=== PATIENT | female | born 1980 | race African-American/Black ===

== ENCOUNTER 2021-08-21 19:11 | Emergency (ER) | payer OTHER, SELFPAY ==
--- NOTE | ~2021-08-21 | XR_ITS ---
EXAMINATION: XR LUMBOSACRAL SPINE CLINICAL INFORMATION: Fall and pain. COMPARISON: None TECHNIQUE: Three views of the lumbosacral spine. FINDINGS: The vertebral bodies and posterior elements are normal. The disc spaces are preserved and the vertebral alignment is normal. The paraspinal soft tissues are normal. XR/XR lumbar spine 2-3V IMPRESSION: Unremarkable examination.
--- NOTE | ~2021-08-21 | XR_ITS ---
EXAMINATION: XR CERVICAL SPINE CLINICAL INFORMATION: Fall and midline pain. COMPARISON: None TECHNIQUE: 3 views of the cervical spine were obtained. FINDINGS: There are no prevertebral soft tissue or bony abnormalities demonstrated. No compression fractures or subluxations are identified. Alignment is maintained at the atlanto-axial articulation. The disc spaces are preserved. No endplate changes are seen. The prevertebral soft tissues are normal. XR/XR cervical spine 3V IMPRESSION: Unremarkable examination.
--- NOTE | ~2021-08-21 | XR_ITS ---
EXAMINATION: XR SHOULDER, LEFT CLINICAL INFORMATION: Fall and pain. COMPARISON: None TECHNIQUE: Four views of the left shoulder. FINDINGS: The bones and soft tissues are normal. No fracture. Glenohumeral and acromioclavicular alignment is anatomic with normal joint space. No abnormal soft tissue calcifications. XR/XR shoulder LT min 2V IMPRESSION: Normal left shoulder.
[2021-08-21 21:39] VITALS: BP 103/51; PULSE 67; RESP 16; TEMP 36.6; O2SAT 99; BMI 30.2
--- NOTE | 2021-08-21 23:05 | ED.FALL ---
HPI - Fall General Chief Complaint: Fall Stated Complaint: fell on back 08/20.. back pain Time Seen by Provider: 08/21/21 23:05 Source: patient Mode of arrival: ambulatory Limitations: no limitations History of Present Illness HPI Narrative: patient slid on wet floor and landed on her back. Did not hit head, patient with left shoulder and lumbar pain. complaint: fall Onset (ago): hour(s) Fall from: standing Fall witnessed: yes, by bystander Place fall occurred: work Loss of consciousness: none Symptoms prior to fall: none Context: tripped/slipped Severity: mild Related Data Previous Rx's Medication Instructions Recorded cyclobenzaprine 10 mg tablet 10 mg PO TID #10 tab 08/22/21 naproxen 500 mg tablet (Naprosyn) 500 mg PO BID #20 tab 08/22/21 Allergies Allergy/AdvReac Type Severity Reaction Status Date / Time No Known Allergies Allergy Verified 08/21/21 21:47 Review of Systems Constitutional: Constitutional: Reports no additional constitutional complaints Eyes: Eyes: Reports no additional eye complaints ENT: Denies dizziness Cardiovascular: Cardiovascular: Reports no additional cardiovascular complaints Respiratory: Respiratory: Reports as per HPI Gastrointestinal: Gastrointestinal: Reports no additional gastrointestinal complaints Genitourinary: Genitourinary: Reports no additional female genitourinary complaints Musculoskeletal: Musculoskeletal: Reports no additional musculoskeletal complaints Integumentary/Breasts: Skin/Breast: Denies rash Neurologic: Reports system reviewed and no additional complaints, except as documented, Denies dizziness and Denies Sensory deficit (Neuro) Psychiatric: Psychiatric: Denies anxiety [facility] Past Medical History Medical History Hypothyroid Social History Social History Advance Directives: No Advance Directives Information Provided: Yes Patient : No Physical Exam Vital Signs: Vital Signs: Last Vital Signs Temp 98 F 08/21/21 21:39 Pulse 67 08/21/21 21:39 Resp 16 08/21/21 21:39 BP 103/51 L 08/21/21 21:39 Pulse Ox 99 08/21/21 21:39 BMI result Body Mass Index 30.2 Const: General: healthy appearing Nutritional Appearance: average body habitus Orientation/consciousness: oriented to person and patient oriented x3 Limitations: no limitations HENMT: Head: Yes normal to inspection Ears: external ears normal General nose exam: Normal external nose present Mouth: Normal oral and palatal mucosa present and oropharynx normal Throat: Yes posterior oropharynx normal Eyes: General: appearance normal, both eyes and all related structures Neck: Other: Midline tenderness to C7 Chest: Chest palpation & inspection: normal inspection of the chest Resp: Auscultation: clear to auscultation bilaterally Cardio: Jugular venous distension: no JVD Rate: regular rate Rhythm: regular rhythm Heart sounds: S1 normal heart sound present and S2 normal heart sound present GI: Inspection: Yes normal to inspection Palpation (GI): Soft to palpation, nontender and No hepatosplenomegaly present Auscultation: normal bowel sounds Back/Spine/Pelvis: Other: Lumbar spine tenderness to palpation Skin: General skin exam: no rashes or lesions noted Neuro: General: oriented to person and patient oriented x3 Cranial nerves: Yes CN's II-XII intact bilaterally Motor exam (neuro): 5/5 motor strength present throughout Sensory Exam: No Sensory deficit (Neuro) Extrem: Other: left shoulder tenderness to palpation and on range of motion Psych: Appearance: grossly normal Course Reevaluation(s) Reevaluation #1: Patient with out fractures of shoulder, lumbar and cervical spine. Will start NSAIDs and flexeril and dc home Time: 00:57 MDM - Fall Imaging Data cervical spine: Radiologist's impression: FINDINGS: There are no prevertebral soft tissue or bony abnormalities demonstrated. No compression fractures or subluxations are identified. Alignment is maintained at the atlanto-axial articulation. The disc spaces are preserved. No endplate changes are seen. The prevertebral soft tissues are normal. XR/XR cervical spine 3V IMPRESSION: Unremarkable examination. ? left shoulder: Radiologist's impression: FINDINGS: The bones and soft tissues are normal. No fracture. Glenohumeral and acromioclavicular alignment is anatomic with normal joint space. No abnormal soft tissue calcifications.? XR/XR shoulder LT min 2V IMPRESSION: Normal left shoulder. lumbar spine: Radiologist's impression: FINDINGS: The vertebral bodies and posterior elements are normal. The disc spaces are preserved and the vertebral alignment is normal. The paraspinal soft tissues are normal. XR/XR lumbar spine 2-3V IMPRESSION: Unremarkable examination. Discharge Plan Discharge Clinical Impression: Cervical strain Qualifiers: Encounter type: initial encounter Qualified Code(s): S16.1XXA - Strain of muscle, fascia and tendon at neck level, initial encounter Lumbar strain Qualifiers: Encounter type: initial encounter Qualified Code(s): S39.012A - Strain of muscle, fascia and tendon of lower back, initial encounter Contusion of left shoulder Qualifiers: Encounter type: initial encounter Qualified Code(s): S40.012A - Contusion of left shoulder, initial encounter Patient Disposition: Home, Self-Care Instructions: Cervical Strain (ED), Low Back Strain (ED), Shoulder Sprain (ED) Prescriptions: New cyclobenzaprine 10 mg tablet 10 mg PO TID Qty: 10 RF: 0 naproxen [Naprosyn] 500 mg tablet 500 mg PO BID Qty: 20 RF: 0 Referrals: Physician,None [Primary Care Provider] - 1 week
== END 2021-08-22 01:16 | disposition home or self-care (01) ==
PROVIDERS: Emergency Provider Emergency Medicine
DX: S16.1XXA Strain of muscle, fascia and tendon at neck level, initial encounter (principal); S40.012A Contusion of left shoulder, initial encounter; M54.50 Low back pain, unspecified; W01.0XXA Fall on same level from slipping, tripping and stumbling without subsequent striking against object, initial encounter; Y93.9 Activity, unspecified; Y92.9 Unspecified place or not applicable; Y99.0 Civilian activity done for income or pay; Z79.899 Other long term (current) drug therapy
CPT/HCPCS: 72040; 72100; 73030; 99283

== ENCOUNTER 2021-11-29 11:22 | Emergency (ER) | payer MEDICAID, SELFPAY ==
--- NOTE | ~2021-11-29 | US_ITS ---
EXAMINATION: US extremity nonvascular CLINICAL INFORMATION: Question abscess versus cellulitis of the right buttock COMPARISON: None TECHNIQUE: Grayscale and color transverse and longitudinal views of the soft tissues were obtained. FINDINGS: A 1.3 x 0.8 x 1.0 cm complex fluid collection is noted in the area of concern, which appears to extend to the skin surface compatible with an abscess. There is overlying skin thickening, subcutaneous edema and increased echogenicity of subcutaneous fat compatible. US/US extremity nonvascular IMPRESSION: A 1.3 cm complex fluid collection is noted in the area of concern, which appears to extend to the skin surface compatible with an abscess. There is overlying skin thickening, subcutaneous edema and increased echogenicity of subcutaneous fat compatible with soft tissue infection/cellulitis.
[2021-11-29 11:39] VITALS: BP 106/32; PULSE 69; RESP 16; TEMP 36.6; O2SAT 100; BMI 31.1
[2021-11-29] MEDS: cephALEXin 500 MG CAPSULE PO (13:17)
[2021-11-29] MEDS: Lidocaine HCl 2 % MPF 5 ML VIAL SUBCUT (13:17)
--- NOTE | 2021-11-29 13:44 | ED.SKABFB ---
HPI - Skin/Abscess/Foreign Bdy General Chief complaint: Skin/Abscess/Foreign Body Stated complaint: boil on rear Time Seen by Provider: 11/29/21 12:02 Source: patient and family Mode of arrival: ambulatory Limitations: no limitations History of Present Illness complaint: abscess/boil Onset (ago): day(s) ( Past few days worse today) Location: buttocks (right sided ) Severity: moderate Quality: aching Pain Consistency: constant Relieving factors: none Exacerbating factors: palpation Context: none Associated symptoms: denies other symptoms Treatments prior to arrival: attempted to drain pus at home Related Data Previous Rx's Medication Instructions Recorded cyclobenzaprine 10 mg tablet 10 mg PO TID #10 tab 08/22/21 naproxen 500 mg tablet (Naprosyn) 500 mg PO BID #20 tab 08/22/21 acetaminophen 300 mg-codeine 30 mg 1 tab PO Q8H PRN #10 tab 11/29/21 tablet cephalexin 500 mg capsule 500 mg PO Q6H 10 Days #40 cap 11/29/21 doxycycline monohydrate 100 mg 100 mg PO BID 10 Days #20 cap 11/29/21 capsule ibuprofen 800 mg tablet 800 mg PO Q8H PRN #14 tab 11/29/21 Allergies Allergy/AdvReac Type Severity Reaction Status Date / Time No Known Allergies Allergy Verified 08/21/21 21:47 Review of Systems Review of Systems: Constitutional : Denies history of same, Denies any other sites involved, Denies IV drug use, Denies history of MRSA, Denies swollen glands, Denies injury, Denies Fever, Denies Chills, + Sig Pain, Denies Systemic symptoms Cardiovascular : No Chest Pain, No SOB Respiratory : No Dyspnea Gastrointestinal : No abdominal pain Musculoskeletal : No Joint Swelling Skin : + abscess with surrounding erythema, No skin laceration, No Foreign bodies, No spreading rash, Denies bites, Denies discharge, Neuro : No Weakness, No Numbness/tingling Psych : No SI/HI/thoughts of self injury Yes all other systems are reviewed and are negative [facility] Past Medical History Attestation statement: The following information was validated with the patient. Medical History Hypothyroid Social History Social History Advance Directives: No Patient : No Physical Exam Vital Signs: Vital Signs: Last Vital Signs Temp 97.9 F 11/29/21 11:39 Pulse 69 11/29/21 11:39 Resp 16 11/29/21 11:39 BP 106/32 L 11/29/21 11:39 Pulse Ox 100 11/29/21 11:39 BMI result Body Mass Index 31.1 vital signs have been reviewed as normal and appeared to be correct. Blood pressure normal Heart rate normal. Respiration rate normal. Temperature normal. Oxygen saturation normal. Appearance: Alert. Oriented X3. No acute distress. Head: Normal external exam. Normocephalic. Atraumatic. Eyes: PERRLA. EOMI. Conjunctiva and sclera normal. Eyelids normal. ENT: Pharynx normal. Uvula midline. Moist mucous membranes. Neck: Normal inspection. Neck supple. FROM. CVS: Normal heart rate and rhythm. Respiratory: No respiratory distress. Painless inspiration. Skin: Skin warm and dry. Normal skin color. Normal skin turgor. patient with erythema/tenderness palpation and warm to touch to the right buttocks questioning fluctuance versus induration no streaking/foreign bodies or active drainage at this time. No additional rashes/lesions/lacerations noted. Extremities: No lower extremity edema. Extremities exhibit normal range of motion. Extremities nontender. Neuro: Oriented X 3. No motor deficit. No sensory deficit. Reflexes normal. Normal steady gait. No focal neuro deficits noted. Vascular: + radial pulses/+ 2 distal pedal pulses/+2 dorsalis pedis b/l. Normal cap refill. No cyanosis noted to upper extremity nails and lower extremity toes nails. Course Course Course Narrative: IMP/Plan: abscess. No systemic toxicity, and pt looks well. + surrounding cellulitis. Not c/w nec fasc/ myositis/ DVT/ osteomyelitis. patient now status post I&D of abscess and patient tolerated procedure well. No complications. No additional labs or imaging indicated at this time. Will DC home antibiotics and symptomatic treatment instructions return if any new or worsening symptoms to follow up with primary care provider. Patient understands agrees this plan. MDM - Skin/Abscess/Foreign Bdy Medical Records Attestation: I reviewed the patient's medical records. Imaging Data right buttocks ultrasound : Attestation: I personally reviewed and interpreted this imaging study as follows: Radiologist's impression: FINDINGS: A 1.3 x 0.8 x 1.0 cm complex fluid collection is noted in the area of concern, which appears to extend to the skin surface compatible with an abscess. There is overlying skin thickening, subcutaneous edema and increased echogenicity of subcutaneous fat compatible.? US/US extremity nonvascular IMPRESSION: ? A 1.3 cm complex fluid collection is noted in the area of concern, which appears to extend to the skin surface compatible with an abscess. There is overlying skin thickening, subcutaneous edema and increased echogenicity of subcutaneous fat compatible with soft tissue infection/cellulitis.? Procedures Abscess I/D Site: other (right buttocks ) Side (if applicable): right Local Anesthetic: lidocaine 2% Technique: incised with blade Amount of fluid expressed (mL): 3 Sent for culture/gram staining?: No Irrigation: Yes Packing used?: none Complications: other ( No complications patient tolerated procedure well) Discharge Plan Discharge Clinical Impression: Cellulitis, Abscess of skin or subcutaneous tissue Patient Disposition: Home, Self-Care Instructions: Cellulitis (ED), Abscess Incision and Drainage (DC) Prescriptions: New ibuprofen 800 mg tablet 800 mg PO Q8H PRN (Reason: pain) Qty: 14 0RF acetaminophen-codeine 300-30 mg tablet 1 tab PO Q8H PRN (Reason: pain) Qty: 10 0RF doxycycline monohydrate 100 mg capsule 100 mg PO BID 10 Days Qty: 20 0RF cephalexin 500 mg capsule 500 mg PO Q6H 10 Days Qty: 40 0RF No Action cyclobenzaprine 10 mg tablet 10 mg PO TID Qty: 10 0RF naproxen [Naprosyn] 500 mg tablet 500 mg PO BID Qty: 20 0RF Referrals: Physician,None [Primary Care Provider] - 2 days (your pcp) Stand Alone Forms: Work/School Release
== END 2021-11-29 14:06 | disposition home or self-care (01) ==
PROVIDERS: Emergency Provider Emergency Medicine
DX: L02.31 Cutaneous abscess of buttock (principal); L03.317 Cellulitis of buttock; M25.48 Effusion, other site; Z79.899 Other long term (current) drug therapy
CPT/HCPCS: 10060; 76882; 99283

== ENCOUNTER 2021-12-02 08:05 | Emergency (ER) | payer MEDICAID, SELFPAY ==
--- NOTE | ~2021-12-02 | US_ITS ---
EXAMINATION: ULTRASOUND EXTREMITY NONVASCULAR CLINICAL INFORMATION: Right buttock pain, evaluate for abscess. COMPARISON: None TECHNIQUE: Multiple 2-D grayscale and Doppler ultrasound images of the soft tissues of the right gluteal region were obtained. FINDINGS: In the region of the palpable abnormality is a subcutaneous hypoechoic focus with horizontal orientation measuring approximately 2.2 x 0.9 x 1.0 cm. Color Doppler showed no abnormal vascular flow. The surrounding soft tissues are unremarkable. Mild overlying edema is seen. US/US extremity nonvascular IMPRESSION: Small hypoechoic focus in the right gluteal region correlates with the palpable abnormality. This is nonspecific and could represent a resolving hematoma or abscess. No significant hypervascularity. * If these findings persist or enlarge, short-term repeat targeted soft tissue ultrasound can be performed as clinically indicated to assess for change.
[2021-12-02 09:35] VITALS: BP 109/59; PULSE 60; RESP 16; TEMP 36.9; O2SAT 100; BMI 31.1
[2021-12-02] MEDS: Acetaminophen 325 MG TABLET 975 MG PO (10:38)
--- NOTE | 2021-12-02 11:06 | ED_ITS ---
HPI - General Adult General Chief complaint: Wound/Laceration Stated complaint: Lump on back Time Seen by Provider: 12/02/21 09:04 Source: patient Mode of arrival: ambulatory Limitations: no limitations History of Present Illness HPI narrative: 41-year-old female presents for a worsening abscess deep under her skin on her right upper buttock. Patient was seen 3 days ago here in the ER, abscess was drained patient was placed on doxycycline and cephalexin which she has been taking. Patient states that abscess started 10 days ago. No fevers, no nausea or vomiting, the abscesses is less painful than it was, but is larger than it was 3 days ago. Related Data Previous Rx's Medication Instructions Recorded cyclobenzaprine 10 mg tablet 10 mg PO TID #10 tab 08/22/21 naproxen 500 mg tablet (Naprosyn) 500 mg PO BID #20 tab 08/22/21 acetaminophen 300 mg-codeine 30 mg 1 tab PO Q8H PRN #10 tab 11/29/21 tablet cephalexin 500 mg capsule 500 mg PO Q6H 10 Days #40 cap 11/29/21 doxycycline monohydrate 100 mg 100 mg PO BID 10 Days #20 cap 11/29/21 capsule ibuprofen 800 mg tablet 800 mg PO Q8H PRN #14 tab 11/29/21 Allergies Allergy/AdvReac Type Severity Reaction Status Date / Time No Known Allergies Allergy Verified 08/21/21 21:47 Review of Systems 2 Constitutional: Constitutional: Denies body ache(s), Denies chills, Denies fatigue, Denies fever(s), Denies headache(s), Denies malaise and Denies weakness Eyes: Eyes: Denies diplopia ENT: Denies vertigo, Denies dizziness, Denies otalgia, Denies headache(s), Denies mouth pain, Denies post nasal drip, Denies sinus pain, Denies sinus pressure, Denies sore throat and Denies throat swelling Cardiovascular: Cardiovascular: Denies chest pain, Denies syncope, Denies leg edema, Denies lightheadedness, Denies Loss of Consciousness, Denies palpitations and Denies dyspnea Respiratory: Respiratory: Denies chest congestion, Denies cough and Denies dyspnea Gastrointestinal: Gastrointestinal: Denies abdominal pain, Denies hematochezia, Denies constipation, Denies diarrhea and Denies vomiting Musculoskeletal: Musculoskeletal: Reports no additional musculoskeletal complaints Integumentary/Breasts: Comments: Painful lump deep to the skin right upper buttock Neurologic: Denies confusion, Denies vertigo, Denies dizziness, Denies syncope, Denies headache(s) and Denies weakness Psychiatric: Psychiatric: Denies anxiety, Denies confusion and Denies depression Endocrine: Endocrine: Denies fatigue and Denies palpitations Allergic/Immunologic: Allergic/Immunologic: Denies throat swelling PMFSH Past Medical History Medical History Hypothyroid Social History Social History Advance Directives: No Advance Directives Information Provided: No Patient : No Physical Exam ED Vital Signs: Vital Signs - 24 hr 12/02/21 09:35 Temperature 98.5 F Pulse Rate 60 Respiratory Rate 16 Blood Pressure 109/59 L Pulse Oximetry 100 BMI result Body Mass Index 31.1 Const General: healthy appearing, no acute distress, well developed, alert and awake; No confusion Nutritional Appearance: well nourished Orientation/consciousness: patient oriented x3 and No confusion Limitations: no limitations HENMT Head: Yes normal to inspection and Yes No palpable skull fracture present Face and sinus: Yes normal facial exam Mouth: Normal oral and palatal mucosa present Throat: Yes posterior oropharynx normal Eyes Conjunctivae: conjunctivae normal Pupils: Equal, round and reactive pupils present EOM: EOMs intact bilaterally Neck Neck: Yes normal visual inspection, Yes full ROM, Yes no lymphadenopathy, Yes no meningeal signs and Yes trachea midline Resp Effort & Inspection: normal respiratory effort and able to speak in complete sentences Auscultation: clear to auscultation bilaterally, no crackles, no rales, no rhonchi and no wheezes Cardio Rate: regular rate Rhythm: regular rhythm GI Palpation (GI): Soft to palpation, nontender and no guarding Skin Other: firm painful mass deep to subcutaneous tissue in right upper buttock Neuro General: patient oriented x3, no meningeal signs and No confusion Cranial nerves: Yes Equal, round and reactive pupils present Extrem General: Yes normal to inspection and Yes full ROM Course Course Course Narrative: 41-year-old female with enlarging abscess in her right upper buttock despite incision and drainage in 3 days of doxycycline and cephalexin. On exam, patient has firm mass that is deep in her right buttock. Ultrasound showed the finding below FINDINGS: In the region of the palpable abnormality is a subcutaneous hypoechoic focus with horizontal orientation measuring approximately 2.2 x 0.9 x 1.0 cm. Color Doppler showed no abnormal vascular flow. The surrounding soft tissues are unremarkable. Mild overlying edema is seen.? This appears to be an enlarging abscess compared with US 3 days ago. See below: FINDINGS: A 1.3 x 0.8 x 1.0 cm complex fluid collection is noted in the area of concern, which appears to extend to the skin surface compatible with an abscess. There is overlying skin thickening, subcutaneous edema and increased echogenicity of subcutaneous fat compatible.? Given that abscess seems to be enlarging despite 3 days of antibiotics will refer patient to surgery. Discharge Plan Discharge Clinical Impression: Abscess Patient Disposition: Home, Self-Care Additional Instructions: Please continue with warm soaks on your right buttock. Please continue with your antibiotics. Please call General surgery at this number [phone]. I have referred you to them also, they showed be calling you but please call them today for follow-up appointment. You may need a surgical removal of this abscess. Please return to the emergency room if you have fevers, worsening pain, or any other new or concerning symptoms. Prescriptions: No Action cyclobenzaprine 10 mg tablet 10 mg PO TID Qty: 10 0RF naproxen [Naprosyn] 500 mg tablet 500 mg PO BID Qty: 20 0RF ibuprofen 800 mg tablet 800 mg PO Q8H PRN (Reason: pain) Qty: 14 0RF acetaminophen-codeine 300-30 mg tablet 1 tab PO Q8H PRN (Reason: pain) Qty: 10 0RF doxycycline monohydrate 100 mg capsule 100 mg PO BID 10 Days Qty: 20 0RF cephalexin 500 mg capsule 500 mg PO Q6H 10 Days Qty: 40 0RF Referrals: Shaquille Guillen MD [Physician] - 2 days Stand Alone Forms: Work/School Release
== END 2021-12-02 12:15 | disposition home or self-care (01) ==
PROVIDERS: Emergency Provider Emergency Medicine
DX: L02.31 Cutaneous abscess of buttock (principal)
CPT/HCPCS: 76882; 99284

== ENCOUNTER 2021-12-15 21:05 | Emergency (ER) | payer MEDICAID, SELFPAY ==
[2021-12-15 21:21] VITALS: BP 139/92; PULSE 94; RESP 19; TEMP 36.9; O2SAT 98; BMI 30.2
[2021-12-15] MEDS: diphenhydrAMINE HCL 25 MG TABLET 50 MG PO (21:29)
[2021-12-15] MEDS: Famotidine 20 MG TABLET PO (21:29)
[2021-12-15] MEDS: predniSONE 20 MG TABLET 60 MG PO (21:29)
--- NOTE | 2021-12-15 23:09 | PC.NURSE ---
patient resting comfortably at this time, arousable to light stimuli. patient reports feeling much improved. skin much less red. patient in no obvious distress. will continue to monitor
[2021-12-16 02:05] VITALS: BP 106/53; PULSE 57; RESP 16; O2SAT 100
--- NOTE | 2021-12-16 02:06 | PC.NURSE ---
Patient brought to bed - reports feeling better after receiving medication - Patient had itching & bumps on neck, body felt hot. Now all symptoms are gone. Patient sitting in bed, respirations regular/non labored. Patient requesting work note before discharge.
[2021-12-16 02:54] VITALS: BP 96/33; PULSE 51; RESP 20; O2SAT 97
--- NOTE | 2021-12-16 03:01 | PC.NURSE ---
pt a&o, no sob or chest pain. pt able to speak in full sentence. no rash present.
--- NOTE | 2021-12-16 04:41 | ED.ALLEREA ---
HPI - Allergic Reaction General Chief complaint: Allergic Reaction Stated complaint: allergic reaction? Time Seen by Provider: 12/15/21 21:21 Source: patient Mode of arrival: ambulatory Limitations: no limitations History of Present Illness HPI narrative: 41-year-old female who presents emergency department for evaluation of rash in itchiness. The patient states that on 12/12/2021 she took aspirin and ibuprofen and developed a rash in itchiness on her neck which eventually resolved. She states that last night at 20:30 hours she again took aspirin and ibuprofen for back pain and developed a rash on her neck. Which presented to the emergency department she did have erythema and urticaria to her neck. She denied chest pain, shortness of breath, nausea, vomiting, lightheadedness or dizziness. Related Data Previous Rx's Medication Instructions Recorded cyclobenzaprine 10 mg tablet 10 mg PO TID #10 tab 08/22/21 naproxen 500 mg tablet (Naprosyn) 500 mg PO BID #20 tab 08/22/21 acetaminophen 300 mg-codeine 30 mg 1 tab PO Q8H PRN #10 tab 11/29/21 tablet cephalexin 500 mg capsule 500 mg PO Q6H 10 Days #40 cap 11/29/21 doxycycline monohydrate 100 mg 100 mg PO BID 10 Days #20 cap 11/29/21 capsule ibuprofen 800 mg tablet 800 mg PO Q8H PRN #14 tab 11/29/21 acetaminophen 300 mg-codeine 30 mg 1 tab PO Q8H PRN #10 tab 12/02/21 tablet prednisone 20 mg tablet 60 mg PO DAILY 5 Days #15 tab 12/16/21 Allergies Allergy/AdvReac Type Severity Reaction Status Date / Time No Known Allergies Allergy Verified 08/21/21 21:47 Review of Systems Review of Systems: Yes all other systems are reviewed and are negative [facility] Past Medical History [facility] Narrative: Social history: She denies tobacco use. She occasionally drinks alcohol. She occasionally smokes marijuana. Medical History Hypothyroid Social History Social History Patient Tobacco Use Status: Never used Tobacco Use of substances other than those prescribed or required for medical reasons: No Advance Directives: No Advance Directives Information Provided: No Physical Exam ED Vital Signs: Vital Signs - 24 hr 12/15/21 21:21 12/16/21 02:05 12/16/21 02:54 Temperature 98.4 F Pulse Rate 94 57 51 Respiratory Rate 19 16 20 Blood Pressure 139/92 H 106/53 L 96/33 L Pulse Oximetry 98 100 97 BMI result Body Mass Index 30.2 Const General: cooperative and no acute distress Orientation/consciousness: oriented to person and oriented to place Limitations: no limitations HENMT Head: Yes normal to inspection, Yes normocephalic and Yes atraumatic Ears: external ears normal General nose exam: Normal external nose present Face and sinus: Yes normal facial exam Mouth: Normal oral and palatal mucosa present Throat: Yes posterior oropharynx normal Eyes General: appearance normal, both eyes and all related structures Pupils: Equal, round and reactive pupils present Neck Neck: Yes normal visual inspection, Yes no lymphadenopathy, Yes trachea midline and Yes supple Chest Chest palpation & inspection: normal inspection of the chest and normal palpation of entire chest wall Resp Effort & Inspection: normal respiratory effort and able to speak in complete sentences Auscultation: clear to auscultation bilaterally Cardio Rate: regular rate Rhythm: regular rhythm Heart sounds: S1 normal heart sound present, S2 normal heart sound present and no murmurs GI Inspection: Yes normal to inspection Palpation (GI): Soft to palpation, nontender and no guarding Auscultation: normal bowel sounds General: Yes no CVA tenderness Back/Spine/Pelvis Back: no CVA tenderness Skin General skin exam: no rashes or lesions noted Neuro General: oriented to person and oriented to place Cranial nerves: Yes CN's II-XII intact bilaterally and Yes Equal, round and reactive pupils present Cognition (Neuro): normal cognition Motor exam (neuro): 5/5 motor strength present throughout Extrem General: Yes normal to inspection Psych Appearance: grossly normal Speech and movement: Normal speech and movement present Affect: normal affect Attitude: cooperative Thought process: Normal thought process present Thought content: Normal thought content present Course Course Course Narrative: 41-year-old female who presents emergency department for evaluation of pruritic erythematous urticarial rash to her neck after taking aspirin ibuprofen. She had a similar event that happened on 12/12/2021 when she took these medications. On presentation she was noted to have a rash to her neck and was treated with Benadryl 50 mg orally, Pepcid 20 mg orally and prednisone 60 mg orally. By the time I saw the patient the rash resolved and her symptoms improved. Patient's presentation is consistent with allergic reaction she was advised to avoid aspirin and ibuprofen in the future. She was started on prednisone 60 mg once a day for 5 days to prevent a rebound reaction and advised to take Benadryl in the event that she has a pruritic rash again. Discharge Plan Discharge Clinical Impression: Allergic reaction Patient Disposition: Home, Self-Care Instructions: General Allergic Reaction (ED) Additional Instructions: Your presentation is consistent with an allergic reaction. You should not take aspirin or ibuprofen again since 1 these medications caused her rash. Take prednisone 20 mg pills, 3 pills once a day for 5 days. Take Benadryl (diphenhydramine) 25 mg pills, 2 pills 4 times a day for the next 2-3 days as needed to help reduce the swelling and itchiness or rash. This medication will make you sleepy. Do not drive or work while taking this medication. Follow-up with your doctor in 2 days. Please return to the emergency department if your symptoms get worse or if you develop any symptoms that are concerning to you. Prescriptions: New prednisone 20 mg tablet 60 mg PO DAILY 5 Days Qty: 15 0RF No Action cyclobenzaprine 10 mg tablet 10 mg PO TID Qty: 10 0RF naproxen [Naprosyn] 500 mg tablet 500 mg PO BID Qty: 20 0RF ibuprofen 800 mg tablet 800 mg PO Q8H PRN (Reason: pain) Qty: 14 0RF acetaminophen-codeine 300-30 mg tablet 1 tab PO Q8H PRN (Reason: pain) Qty: 10 0RF doxycycline monohydrate 100 mg capsule 100 mg PO BID 10 Days Qty: 20 0RF cephalexin 500 mg capsule 500 mg PO Q6H 10 Days Qty: 40 0RF acetaminophen-codeine 300-30 mg tablet 1 tab PO Q8H PRN (Reason: pain) Qty: 10 0RF
--- NOTE | 2021-12-16 04:49 | PC.NURSE ---
pt able to speak clearly, report symptoms have improved. no sign of allergic reaction at this time. discharge instructions reviewed
[2021-12-16 04:50] VITALS: BP 99/45; PULSE 50; RESP 16; TEMP 36.4; O2SAT 100
== END 2021-12-16 04:56 | disposition home or self-care (01) ==
PROVIDERS: Emergency Provider Emergency Medicine Emergency Medical Services
DX: R21 Rash and other nonspecific skin eruption (principal); T39.015A Adverse effect of aspirin, initial encounter; T39.315A Adverse effect of propionic acid derivatives, initial encounter; Y92.009 Unspecified place in unspecified non-institutional (private) residence as the place of occurrence of the external cause
CPT/HCPCS: 99283; 99284; Q0163